=== PATIENT | female | born 1970 | race Caucasian/White ===

== ENCOUNTER 2017-10-19 13:55 | Emergency (ER) | payer OTHER ==
[~2017-10-19] VITALS: Ht 165.1 cm; Wt 100.2 kg
[~2017-10-19 13:55] MED LIST: FLEXERIL10 MG PO; LEXAPRO20 MG PO; METFORMIN500 M1 PO; MOTRIN800 MG PO; NOR10T; TRICOR145 M1 PO
[2017-10-19 14:49] VITALS: Ht 165.1 cm; Wt 100.2 kg
[2017-10-19 15:39] LABS: UA SPECIFIC GRAVITY 1.015 (1.005-1.035); microscopic required? YES; urine erythrocyte NEGATIVE (NEGATIVE)
[2017-10-19 15:40] LABS: BASOPHIL % 0.4 % (0-2); PLATELET COUNT 341 x10^3mcL (130-400); RED CELL DISTRIBUTION WIDTH 13.4 % (11.5-14.5)
[2017-10-19 16:22] LABS: CALCIUM 8.8 mg/dL (8.5-10.1); CARBON DIOXIDE 29.2 mmol/L (21-32); CHLORIDE SERUM 102 mmol/L (98-107); CREATININE SERUM 0.9 mg/dL (0.6-1.0); GFR1 > 60 mL/min; GLUCOSE SERUM 90 mg/dL (74-106); POTASSIUM SERUM 3.5 mmol/L (3.5-5.1); SODIUM SERUM 141 mmol/L (136-145)
[2017-10-19 16:23] VITALS: BP 129/73
[2017-10-19 16:26] LABS: ALKALINE PHOSPHATASE 41 U/L (46-116); ALT/SGPT 57 U/L (14-59); AST/SGOT 34 U/L (15-37); BILIRUBIN TOTAL 0.2 mg/dL (0.20-1.00); LIPASE 93 IU/L (73-393); TOTAL PROTEIN, SERUM 7.3 g/dL (6.4-8.2)
== END 2017-10-19 16:58 | disposition home or self-care (01) ==
LOC: ED 13:55
PROVIDERS: Emergency Medicine
DX: N39.0 Urinary tract infection, site not specified (principal); E11.9 Type 2 diabetes mellitus without complications; E78.00 Pure hypercholesterolemia, unspecified; Z90.710 Acquired absence of both cervix and uterus
CPT/HCPCS: J1885; Q0092; Q0162

== ENCOUNTER 2019-04-12 12:51 | Emergency (ER) | payer OTHER ==
[~2019-04-12] VITALS: Ht 165.1 cm; Wt 101.2 kg
[2019-04-12 13:20] VITALS: Ht 165.1 cm; Wt 101.2 kg
[2019-04-12 15:39] LABS: microscopic required? NO
[2019-04-12 16:00] LABS: UA SPECIFIC GRAVITY 1.015 (1.005-1.035); urine erythrocyte NEGATIVE (NEGATIVE)
[2019-04-12 19:17] VITALS: BP 133/54
== END 2019-04-12 19:17 | disposition home or self-care (01) ==
LOC: ED 12:51
DX: N83.292 Other ovarian cyst, left side (principal); E11.9 Type 2 diabetes mellitus without complications; F41.9 Anxiety disorder, unspecified; E78.00 Pure hypercholesterolemia, unspecified; Z97.10 Presence of artificial limb (complete) (partial), unspecified; Z98.890 Other specified postprocedural states
CPT/HCPCS: J1885; J3010; Q0162

== ENCOUNTER 2019-04-22 14:48 | Emergency (ER) | payer OTHER ==
[~2019-04-22] VITALS: Ht 165.1 cm; Wt 101.6 kg
[2019-04-22 14:59] VITALS: Ht 165.1 cm; Wt 101.6 kg
[2019-04-22 16:13] LABS: microscopic required? NO
[2019-04-22 16:21] LABS: UA SPECIFIC GRAVITY <=1.005 (1.005-1.035); urine erythrocyte NEGATIVE (NEGATIVE)
[2019-04-22 16:23] LABS: BASOPHIL % 0.5 % (0-2); PLATELET COUNT 335 x10^3mcL (130-400); RED CELL DISTRIBUTION WIDTH 13.8 % (11.5-14.5)
[2019-04-22 16:30] LABS: CALCIUM 8.8 mg/dL (8.5-10.1); CHLORIDE SERUM 105 mmol/L (98-107); CREATININE SERUM 0.9 mg/dL (0.6-1.0); GFR1 > 60 mL/min; GLUCOSE SERUM 87 mg/dL (74-106); POTASSIUM SERUM 3.8 mmol/L (3.5-5.1); SODIUM SERUM 143 mmol/L (136-145)
[2019-04-22 16:35] LABS: ALBUMIN 3.6 g/dL (3.4-5.0); ALKALINE PHOSPHATASE 89 U/L (46-116); ALT/SGPT 43 U/L (14-59); AMYLASE 37 U/L (25-115); AST/SGOT 24 U/L (15-37); BILIRUBIN TOTAL 0.39 mg/dL (0.20-1.00); LIPASE 140 IU/L (73-393); TOTAL PROTEIN, SERUM 7.4 g/dL (6.4-8.2)
[2019-04-22 21:23] VITALS: BP 168/92
== END 2019-04-22 21:23 | disposition home or self-care (01) ==
LOC: ED 14:48
PROVIDERS: Student in an Organized Health Care Education/Training Program
DX: N20.0 Calculus of kidney (principal); N30.90 Cystitis, unspecified without hematuria; E11.9 Type 2 diabetes mellitus without complications; F41.9 Anxiety disorder, unspecified; E78.00 Pure hypercholesterolemia, unspecified; Z90.710 Acquired absence of both cervix and uterus
CPT/HCPCS: J1885; J2270; J2405; J7030; Q9967

== ENCOUNTER 2019-10-29 12:08 | Emergency (ER) | payer OTHER ==
[~2019-10-29] VITALS: Ht 165.1 cm; Wt 104.3 kg
[2019-10-29 12:30] VITALS: BP 132/71; Ht 165.1 cm; Wt 104.3 kg
== END 2019-10-29 15:19 | disposition home or self-care (01) ==
LOC: ED 12:08
DX: S20.01XA Contusion of right breast, initial encounter (principal); E11.9 Type 2 diabetes mellitus without complications; E78.00 Pure hypercholesterolemia, unspecified; E66.9 Obesity, unspecified; Z90.49 Acquired absence of other specified parts of digestive tract; Z90.711 Acquired absence of uterus with remaining cervical stump; Z68.38 Body mass index [BMI] 38.0-38.9, adult; W51.XXXA Accidental striking against or bumped into by another person, initial encounter; Y93.89 Activity, other specified; Y92.89 Other specified places as the place of occurrence of the external cause; Y99.8 Other external cause status